=== PATIENT | male | born 1985 | race Two or more races ===

== ENCOUNTER 2023-04-21 13:34 | Emergency (ER) | payer MEDICAID, OTHER ==
[~2023-04-21] VITALS: Ht 167.6 cm; Wt 96.5 kg
[2023-04-21 15:23] VITALS: BP 150/92; PULSE 76; RESP 18; TEMP 98.1; O2SAT 99
[2023-04-21] MEDS ORDERED: ACETAMINOPHEN 500 MG TAB PO ONE (15:45)
[2023-04-21] MEDS ORDERED: KETOROLAC TROMETH 60MG/2ML VIAL IM ONE (15:45)
[2023-04-21] MEDS ORDERED: CYCL-837 PO (16:22)
[2023-04-21] MEDS ORDERED: IBUP-1454 PO (16:22)
== END 2023-04-21 16:23 | disposition home or self-care (01) ==
LOC: ER 13:34
DX: M54.2 Cervicalgia (principal); Z79.1 Long term (current) use of non-steroidal anti-inflammatories (NSAID); Z79.899 Other long term (current) drug therapy
CPT/HCPCS: 72040; 96372; 99283; J1885

== ENCOUNTER 2024-03-27 12:49 | Emergency (ER) | payer MEDICAID ==
[~2024-03-27] VITALS: Ht 172.7 cm; Wt 109.0 kg
[~2024-03-27 12:49] MED LIST: CYCL-837 PO; IBUP-1454 PO
[2024-03-27 17:25] VITALS: BP 120/71; PULSE 94; RESP 16; TEMP 98.9; O2SAT 94
[2024-03-27] MEDS: cloNIDine HCL 0.1 MG TAB PO ONE (17:27)
[2024-03-27] MEDS: ONDANSETRON ODT 4 MG TAB PO ONE (17:27)
[2024-03-27] MEDS: HYDROcodone-ACET 10/325MG TAB PO ONE (17:27)
== END 2024-03-27 17:47 | disposition left against medical advice (07) ==
LOC: ER 12:49 → EDBD 12:49 → ER 17:47
DX: R51.9 Headache, unspecified (principal); R05.9 Cough, unspecified; M79.10 Myalgia, unspecified site; R11.2 Nausea with vomiting, unspecified; E66.01 Morbid (severe) obesity due to excess calories; Z68.36 Body mass index [BMI] 36.0-36.9, adult; Z79.899 Other long term (current) drug therapy
CPT/HCPCS: 70450; 71046; 99284; Q0162